=== PATIENT | female | born 1995 | race American Indian/Alaskan Native ===

== ENCOUNTER 2018-01-24 10:24 | Emergency (ER) | payer SELFPAY ==
[2018-01-24 11:05] LABS: Bilirubin,Urine NEG (Negative); Blood,Urine NEG (Negative); Color,Urine Straw (Yellow); Protein,Urine <15 mg/dL mg/dL (Negative); Urobilinogen,Urine < 2.0 mg/dL (<2.0)
[2018-01-24 11:08] LABS: HCG Qualitative,Urine Positive (Negative)
--- NOTE | 2018-01-24 11:14 | Emergency Department Report ---
Blank Doc - Documentation Documentation: Patient is a 22-year-old female presenting with 2 weeks of central abdominal crampiness. Patient states it feels cramps. Patient states she is not late for her menses is not bleeding currently. Patient also has a very mild vaginal discharge as well. Patient denies any nausea vomiting fevers chills diarrhea cough cold congestion at this time. Focused physical exam patient has some mild generalized abdominal discomfort but no rebound or guarding. Urinalysis impression Karen patient is . Patient will be sent to the treatment room for pelvic exam and ultrasound be done as well.
--- NOTE | 2018-01-24 11:37 | Emergency Department Report ---
ED Female HPI - General Chief complaint: Abdominal Pain Stated complaint: CRAMPING Time Seen by Provider: 01/24/18 11:06 Source: patient Mode of arrival: Ambulatory Limitations: No Limitations - History of Present Illness Initial comments: This is a 22-year-old -Martiniquais female presents with lower abdominal cramping, low back pain, and vaginal discharge for 3 days. Patient states she is nauseous and think she could be . Patient states she is trying to get medicaid insurance to follow up with DIAGNOSTIC IMAGING MANAGER but awaiting confirmation. Patient states nausea and vomiting for 2 weeks have been intermittent and worse after eating. Patient reports abdominal pain is a cramping sensation that is 6 out of 10 pain scale. A0, LMP 12/02/2017. Patient denies vaginal bleeding, low back pain, frequency, urgency, dysuria, fever, chest pain. MD Complaint: vaginal discharge Onset/Timin -: week(s) Location: suprapubic Radiation: non-radiating Severity: moderate Severity scale (0 -10): 6 Quality: cramping Consistency: intermittent Improves with: none Worsens with: none Are you Now?: Yes Last Menstrual Period: 12/02/17 EDC: 09/08/18 Associated Symptoms: vaginal discharge, abdominal pain, nausea/vomiting. denies : vaginal bleeding, fever/chills, headaches, loss of appetite, dysuria, hematuria, rash, seizure, shortness of breath, syncope, weakness - Related Data Sexually active: Yes : 2 Para: 1 A: 0 Home Medications Medication Instructions Recorded Confirmed Last Taken Vit No.129/Iron/Folic 05/04/16 05/04/16 [ One Daily Tablet] Previous Rx's Medication Instructions Recorded Last Taken Type Miconazole 2% [Monistat 7 Vag 1 applicator VG QHS 3 Days #1 tube 01/24/18 Unknown Rx Cream] 21/Iron Fu/Folic Acid 1 each PO DAILY #30 tablet 01/24/18 Unknown Rx [ Complete Caplet] metroNIDAZOLE [Metronidazole] 500 mg PO BID #14 tablet 01/24/18 Unknown Rx Allergies Allergy/AdvReac Type Severity Reaction Status Date / Time No Known Allergies Allergy Verified 05/12/14 17:49 ED Review of Systems ROS: Stated complaint: CRAMPING Other details as noted in HPI Constitutional: denies: chills, fever Respiratory: denies: cough, shortness of breath, wheezing Cardiovascular: denies: chest pain, palpitations Gastrointestinal: abdominal pain. denies: nausea, diarrhea Genitourinary: discharge. denies: urgency, dysuria Musculoskeletal: denies: back pain, joint swelling, arthralgia Skin: denies: rash, lesions Neurological: denies: headache, weakness, paresthesias Psychiatric: denies: anxiety, depression ED Past Medical Hx - Past Medical History Previous Medical History?: Yes Hx Hypertension: No Hx Congestive Heart Failure: No Hx Diabetes: No Hx Deep Vein Thrombosis: No Hx Renal Disease: No Hx Sickle Cell Disease: No Hx Headaches / Migraines: Yes Hx Seizures: No Hx Asthma: No Hx COPD: No Hx HIV: No - Surgical History Past Surgical History?: No - Social History Smoking Status: Never Smoker Substance Use Type: None - Medications Home Medications: Home Medications Medication Instructions Recorded Confirmed Last Taken Type Vit No.129/Iron/Folic 05/04/16 05/04/16 History [ One Daily Tablet] Miconazole 2% [Monistat 7 Vag 1 applicator VG QHS 3 Days #1 tube 01/24/18 Unknown Rx Cream] 21/Iron Fu/Folic Acid 1 each PO DAILY #30 tablet 01/24/18 Unknown Rx [ Complete Caplet] metroNIDAZOLE [Metronidazole] 500 mg PO BID #14 tablet 01/24/18 Unknown Rx ED Physical Exam - General Limitations: No Limitations General appearance: alert, in no apparent distress - Respiratory Respiratory exam: Present: normal lung sounds bilaterally. Absent: respiratory distress - Cardiovascular Cardiovascular Exam: Present: regular rate, normal rhythm. Absent: systolic murmur, diastolic murmur, rubs, gallop - GI/Abdominal GI/Abdominal exam: Present: soft, normal bowel sounds - External exam: Present: normal external exam Speculum exam: Present: vaginal discharge (malodorous white discharge). Absent : cervical discharge, vaginal bleeding, foreign body, tissue, laceration Bi-manual exam: Present: normal bi-manual exam - Back Exam Back exam: Present: full ROM. Absent: CVA tenderness (R), CVA tenderness (L) - Neurological Exam Neurological exam: Present: alert, oriented X3 - Psychiatric Psychiatric exam: Present: normal affect, normal mood - Skin Skin exam: Present: warm, dry, intact, normal color. Absent: rash ED Course Vital Signs 01/24/18 01/24/18 10:37 14:37 Temperature 98.9 F 98.0 F Pulse Rate 64 78 Respiratory 16 17 Rate Blood Pressure 112/62 Blood Pressure 106/52 [Left] O2 Sat by Pulse 100 100 Oximetry ED Medical Decision Making - Radiology Data Radiology results: report reviewed, image reviewed ULTRASOUND OB LESS THAN 14 WEEKS FETUS ULTRASOUND OB TRANSVAGINAL HISTORY: Abdominal pain during . COMPARISON: No recent comparison. TECHNIQUE: Transabdominal and transvaginal ultrasound with color doppler interrogation. FINDINGS: Uterus: The uterus measures 9.0 x 5.7 x 6.8 cm. No evidence for uterine mass. Normal cervix. Endometrium: An intrauterine gestational sac containing a small pole and yolk sac is identified. Heart rate measures 113 beats per minute. Estimated age on ultrasound is 6 weeks, 6 days. No subchorionic hemorrhage is visualized. Right ovary: 3.0 x 2.6 x 3.6 cm. A 2.4 cm complex area is identified in the right ovary which probably represents a corpus luteum cyst. Left ovary: 2.7 x 1.3 x 2.9 cm. No abnormality. No pelvic fluid or mass is identified. Normal color doppler interrogation. IMPRESSION: Viable, single intrauterine as described. No acute abnormality is detected. Probable corpus luteum cyst in the right ovary. - Medical Decision Making This is a 22-year-old -Martiniquais female who presents with vaginal discharge and abdominal pain during . Patient was examined by myself and Dr. Coles. Labs obtained and OB US. Vitals are stable and in no acute distress. Wet prep positive for yeast and clue cells, negative trichomoniasis. Viable, single intrauterine as described. No acute abnormality is detected. Probable corpus luteum cyst in the right ovary.Patient informed of reuslts. Started on flagyl, miconazole, and vitamins. Discharged home in stable condition. F/U with DIAGNOSTIC IMAGING MANAGER. Critical care attestation.: If time is entered above; I have spent that time in minutes in the direct care of this critically ill patient, excluding procedure time. ED Disposition Clinical Impression: confirmed by positive blood test, Bacterial vaginitis, Vaginal candidiasis Vaginal discharge during Qualifiers: Trimester: first trimester Qualified Code(s): O26.891 - Other specified related conditions, first trimester Disposition: DC-01 TO HOME OR SELFCARE Is pt being admited?: No Does the pt Need Aspirin: No Condition: Stable Instructions: (ED), Bacterial Vaginosis (ED), Vulvovaginal Candidiasis (ED) Additional Instructions: Start vitamins daily. Complete full course of antibiotics as prescribed. Follow up with DIAGNOSTIC IMAGING MANAGER. Prescriptions: Miconazole 2% [Monistat 7 Vag Cream] 1 applicator VG QHS 3 Days #1 tube metroNIDAZOLE [Metronidazole] 500 mg PO BID #14 tablet 21/Iron Fu/Folic Acid [ Complete Caplet] 1 each PO DAILY #30 tablet Referrals: [facility] [Provider Group] - 3-5 Days [facility] [Provider Group] - 3-5 Days [facility]Outside[facility] - 3-5 Days Forms: STI Treatment and Prevention Time of Disposition: 14:49 Print Language: ZIMBABWEAN
--- NOTE | 2018-01-24 14:26 | Ultrasound Report ---
ULTRASOUND OB LESS THAN 14 WEEKS FETUS ULTRASOUND OB TRANSVAGINAL HISTORY: Abdominal pain during . COMPARISON: No recent comparison. TECHNIQUE: Transabdominal and transvaginal ultrasound with color doppler interrogation. FINDINGS: Uterus: The uterus measures 9.0 x 5.7 x 6.8 cm. No evidence for uterine mass. Normal cervix. Endometrium: An intrauterine gestational sac containing a small pole and yolk sac is identified. Heart rate measures 113 beats per minute. Estimated age on ultrasound is 6 weeks, 6 days. No subchorionic hemorrhage is visualized. Right ovary: 3.0 x 2.6 x 3.6 cm. A 2.4 cm complex area is identified in the right ovary which probably represents a corpus luteum cyst. Left ovary: 2.7 x 1.3 x 2.9 cm. No abnormality. No pelvic fluid or mass is identified. Normal color doppler interrogation. IMPRESSION: Viable, single intrauterine as described. No acute abnormality is detected. Probable corpus luteum cyst in the right ovary.
[2018-01-24 14:37] VITALS: BP 106/52
== END 2018-01-24 15:05 | disposition home or self-care (01) ==
LOC: ED 10:24
DX: O23.591 Infection of other part of genital tract in pregnancy, first trimester (principal); N76.0 Acute vaginitis; O98.811 Other maternal infectious and parasitic diseases complicating pregnancy, first trimester; B37.3 Candidiasis of vulva and vagina; B96.89 Other specified bacterial agents as the cause of diseases classified elsewhere; Z3A.01 Less than 8 weeks gestation of pregnancy; G43.909 Migraine, unspecified, not intractable, without status migrainosus; Z79.899 Other long term (current) drug therapy
CPT/HCPCS: 36415; 76801; 76817; 81001; 81025; 84702; 87210; 87591

== ENCOUNTER 2018-02-25 16:31 | Emergency (ER) | payer OTHER ==
[2018-02-25 16:56] VITALS: BP 129/78
[2018-02-25 17:58] LABS: Bacteria,Urine 1+ /HPF (Negative); Bilirubin,Urine NEG (Negative); Blood,Urine NEG (Negative); Color,Urine Straw (Yellow); Mucus,Urine FEW /HPF; Protein,Urine <15 mg/dL mg/dL (Negative); Urobilinogen,Urine < 2.0 mg/dL (<2.0); WBC,Urine < 1.0 /HPF (0.0-6.0)
--- NOTE | 2018-02-25 19:04 | Emergency Department Report ---
<BEST DUFFY - Last Filed: 02/25/18 19:00> ED General Adult HPI - General Chief complaint: Urogenital-Female Stated complaint: POSS MISCARRIAGE Time Seen by Provider: 02/25/18 18:27 Source: patient Mode of arrival: Ambulatory Limitations: No Limitations - History of Present Illness Initial comments: Patient presents to the emergency department with a chief complaint of issues. The patient states that she is approximately 4 weeks' and was seen at [facility] or Sunday and was initially told that she was having a miscarriage. Patient states at that time of presentation she was having some abdominal cramping and passing of bright red blood. Patient states initially the first nurse practitioner told her she was having a miscarriage and given discharge assessment nurse practitioner told her she was having a threatened miscarriage. Patient states she is normal to have abdominal pain or any vaginal bleeding but is confused about status for and is here for a second opinion -: Gradual Severity scale (0 -10): 0 Improves with: none Worsens with: none Associated Symptoms: denies other symptoms Treatments Prior to Arrival: none - Related Data Home Medications Medication Instructions Recorded Confirmed Last Taken Vit No.129/Iron/Folic 05/04/16 05/04/16 [ One Daily Tablet] Previous Rx's Medication Instructions Recorded Last Taken Type Miconazole 2% [Monistat 7 Vag 1 applicator VG QHS 3 Days #1 tube 01/24/18 Unknown Rx Cream] 21/Iron Fu/Folic Acid 1 each PO DAILY #30 tablet 01/24/18 Unknown Rx [ Complete Caplet] metroNIDAZOLE [Metronidazole] 500 mg PO BID #14 tablet 01/24/18 Unknown Rx Allergies Allergy/AdvReac Type Severity Reaction Status Date / Time No Known Allergies Allergy Verified 05/12/14 17:49 ED Review of Systems ROS: Stated complaint: POSS MISCARRIAGE Other details as noted in HPI Comment: All other systems reviewed and negative Constitutional: denies: chills, fever Eyes: denies: eye pain, eye discharge, vision change ENT: denies: ear pain, throat pain Respiratory: denies: cough, shortness of breath, wheezing Cardiovascular: denies: chest pain, palpitations Endocrine: no symptoms reported Gastrointestinal: denies: abdominal pain, nausea, diarrhea Genitourinary: denies: urgency, dysuria, discharge Musculoskeletal: denies: back pain, joint swelling, arthralgia Skin: denies: rash, lesions Neurological: denies: headache, weakness, paresthesias Psychiatric: denies: anxiety, depression Hematological/Lymphatic: denies: easy bleeding, easy bruising ED Past Medical Hx - Past Medical History Hx Hypertension: No Hx Congestive Heart Failure: No Hx Diabetes: No Hx Deep Vein Thrombosis: No Hx Renal Disease: No Hx Sickle Cell Disease: No Hx Headaches / Migraines: Yes Hx Seizures: No Hx Asthma: No Hx COPD: No Hx HIV: No - Social History Smoking Status: Never Smoker Substance Use Type: None - Medications Home Medications: Home Medications Medication Instructions Recorded Confirmed Last Taken Type Vit No.129/Iron/Folic 05/04/16 05/04/16 History [ One Daily Tablet] Miconazole 2% [Monistat 7 Vag 1 applicator VG QHS 3 Days #1 tube 01/24/18 Unknown Rx Cream] 21/Iron Fu/Folic Acid 1 each PO DAILY #30 tablet 01/24/18 Unknown Rx [ Complete Caplet] metroNIDAZOLE [Metronidazole] 500 mg PO BID #14 tablet 01/24/18 Unknown Rx ED Physical Exam - General Limitations: No Limitations General appearance: alert, in no apparent distress - Head Head exam: Present: atraumatic, normocephalic - Eye Eye exam: Present: normal appearance - ENT ENT exam: Present: mucous membranes moist - Neck Neck exam: Present: normal inspection - Respiratory Respiratory exam: Present: normal lung sounds bilaterally. Absent: respiratory distress, wheezes, rales, rhonchi - Cardiovascular Cardiovascular Exam: Present: regular rate, normal rhythm. Absent: systolic murmur, diastolic murmur, rubs, gallop - GI/Abdominal GI/Abdominal exam: Present: soft, normal bowel sounds. Absent: distended, tenderness - External exam: Present: other (exam deferred by patient) Speculum exam: Present: other (exam deferred by patient) Bi-manual exam: Present: other (exam deferred by patient) - Extremities Exam Extremities exam: Present: normal inspection - Back Exam Back exam: Present: normal inspection - Neurological Exam Neurological exam: Present: alert, oriented X3, CN II-XII intact. Absent: motor sensory deficit - Psychiatric Psychiatric exam: Present: normal affect, normal mood - Skin Skin exam: Present: warm, dry, intact, normal color. Absent: rash ED Course Vital Signs 02/25/18 16:53 Temperature 98.7 F Pulse Rate 93 H Respiratory 18 Rate Blood Pressure 129/78 O2 Sat by Pulse 100 Oximetry Critical care attestation.: If time is entered above; I have spent that time in minutes in the direct care of this critically ill patient, excluding procedure time. ED Disposition Clinical Impression: Threatened miscarriage Disposition: DC-01 TO HOME OR SELFCARE Condition: Stable Instructions: Threatened Miscarriage (ED) Additional Instructions: Follow-up with a handling tech doctor in 3-5 days or if symptoms worsen and continue return to emergency room as soon as possible. Referrals: [facility] [Primary Care Provider] - 3-5 Days ANTELMO RIVERA MD [Staff Physician] - 3-5 Days [facility] [Provider Group] - 3-5 Days Forms: Work/School Release Form(ED) <FRANCISCA MCCARTHY - Last Filed: 02/25/18 22:52> ED Medical Decision Making - Lab Data Result diagrams: 02/25/18 20:10 - Medical Decision Making This is a 22-year-old female presents with threatened miscarriage. Patient was signed out to me by Dr. Duffy for pending US report. Patient is stable and was examined by me. Normal abdominal exam. US OB obtained and dictated by the radiologist. As per patient, patient should be about 12 weeks . Patient does follow [facility]. Ua obtained. Quantative serum test obtained. Patient notified of the US report with no questions noted by the patient. RH factor positive. Labs within normal limits. Patient was referred to Follow-up with a [facility] in 3-5 days or if symptoms worsen and continue return to emergency room as soon as possible. At time of discharge, the patient does not seem toxic or ill in appearance. No acute signs of distress noted. Patient agrees to discharge treatment plan of care. No further questions noted by the patient. ED Disposition Is pt being admited?: No Does the pt Need Aspirin: No
[2018-02-25 20:22] LABS: Basophils # (Auto) 0.1 K/mm3 (0.0-0.1); Basophils % (Auto) 0.8 % (0.0-1.8); Eosinophils # (Auto) 0.1 K/mm3 (0.0-0.4); Eosinophils % (Auto) 1.8 % (0.0-4.3); Hematocrit 37.7 % (30.3-42.9); Hemoglobin 12.5 gm/dl (10.1-14.3); Lymphocytes # (Auto) 1.7 K/mm3 (1.2-5.4); Lymphocytes % (Auto) 22.4 % (13.4-35.0); Mean Corpuscular HGB Conc 33 % (30-34); Mean Corpuscular Hemoglobin 31 pg (28-32); Mean Corpuscular Volume 94 fl (79-97); Monocytes # (Auto) 0.6 K/mm3 (0.0-0.8); Monocytes % (Auto) 8.3 % (0.0-7.3); Platelet Count 317 K/mm3 (140-440); Red Blood Count 4.02 M/mm3 (3.65-5.03); Red Cell Distribution Width 14.4 % (13.2-15.2)
--- NOTE | 2018-02-25 22:32 | Ultrasound Report ---
FINAL REPORT PROCEDURE: US OB TRANSVAGINAL TECHNIQUE: Real-time transvaginal sonography of the uterus, placenta, amniotic fluid, adnexa, and fetus was performed with image documentation. Measurements were obtained to determine age/size. M-mode Doppler was used to document heartbeat. CPT 53263 HISTORY: pain and bleeding with COMPARISON: No prior studies are available for comparison. FINDINGS: CRL: 7mm, which corresponds to a gestational age of: 6weeks, 4 days. Embryonic Cardiac Activity: Not visualized Gestational Sac: Large in size measuring 45.3 millimeters corresponding to 10 weeks and 0 days of gestational age Right Ovary: 2.9 x 2.0 x 2.4 centimeters. A small complex cystic lesion is noted measuring 1.2 x 1.1 centimeters. This is of nonspecific nature. Left Ovary: 2.7 x 1.4 x 1.9 centimeters with normal echotexture IMPRESSION: A single intrauterine gestational sac is noted with a CR L measurement corresponding to 6 weeks and 4 days of gestational age. However there is no cardiac activity. Findings are consistent with early intrauterine gestation failure.
--- NOTE | 2018-02-25 22:32 | Ultrasound Report ---
FINAL REPORT PROCEDURE: US OB < = 14 WEEKS FETUS TECHNIQUE: Real-time transabdominal sonography of the uterus, placenta, amniotic fluid, adnexa, and fetus was performed with image documentation. Measurements were obtained to determine age/size. M-mode Doppler was used to document heartbeat. CPT 93020 HISTORY: pain and bleeding with COMPARISON: No prior studies are available for comparison. FINDINGS: CRL: 7mm, which corresponds to a gestational age of: 6weeks, 4 days. Embryonic Cardiac Activity: Not visualized Gestational Sac: Large in size measuring 45.3 millimeters corresponding to 10 weeks and 0 days of gestational age Right Ovary: 2.9 x 2.0 x 2.4 centimeters. A small complex cystic lesion is noted measuring 1.2 x 1.1 centimeters. This is of nonspecific nature. Left Ovary: 2.7 x 1.4 x 1.9 centimeters with normal echotexture IMPRESSION: A single intrauterine gestational sac is noted with a CR L measurement corresponding to 6 weeks and 4 days of gestational age. However there is no cardiac activity. Findings are consistent with early intrauterine gestation failure.
== END 2018-02-25 22:57 | disposition home or self-care (01) ==
LOC: ED 16:31
DX: O20.0 Threatened abortion (principal); Z3A.01 Less than 8 weeks gestation of pregnancy
CPT/HCPCS: 36415; 76801; 76817; 81001; 84702; 85025; 86850; 86900; 86901; 99284

== ENCOUNTER 2018-03-01 05:45 | Day surgery (SDC) | payer OTHER ==
--- NOTE | 2018-02-28 16:20 | Short Stay Summary ---
Short Stay Documentation Date of service: 03/01/18 Narrative H&P: 22y/o @ 6+5 weeks with findings of an embryonic demise. The patient is approximately 10 weeks ega by her lmp. Ultrasound demonstrates a single intrauterine without cardiac activity. The patient has had spotting without passage of tissue. Patient has been reassessed/reevaluated/re-examined. H&P has been reviewed. No interval changes. - History Principal diagnosis: Missed Past Medical History: No medical history Past Surgical History: No surgical history Social history: single - Allergies and Medications Current Medications: Allergies No Known Allergies Allergy (Verified 05/12/14 17:49) Home Medications Medication Instructions Recorded Confirmed Last Taken Type Vit No.129/Iron/Folic 05/04/16 05/04/16 History [ One Daily Tablet] Miconazole 2% [Monistat 7 Vag 1 applicator VG QHS 3 Days #1 tube 01/24/18 Unknown Rx Cream] 21/Iron Fu/Folic Acid 1 each PO DAILY #30 tablet 01/24/18 Unknown Rx [ Complete Caplet] metroNIDAZOLE [Metronidazole] 500 mg PO BID #14 tablet 01/24/18 Unknown Rx - Physical exam General appearance: no acute distress Integumentary: no rash HEENT: Atraumatic Lungs: Clear to auscultation Breasts: deferred Heart: Regular rate Gastrointestinal: normal Female Genitourinary: deferred Rectal Exam: deferred Extremities: no ischemia - Brief post op/procedure progress note Date of procedure: 03/01/18 Pre-op diagnosis: missed Post-op diagnosis: same Procedure: Suction dilatation and curettage Anesthesia: GETA Surgeon: LARS DOUGLASS Estimated blood loss: other (300 mL) Pathology: list (products of conception) Specimen disposition: to lab Condition: stable - Hospital course Hospital course: The patient was admitted the day of surgery and underwent a suction dilatation and curettage for an embryonic demise. Please see operative note for details of surgery. Postoperative course was uneventful. - Disposition Condition at discharge: Good Disposition: DC-01 TO HOME OR SELFCARE Short Stay Discharge Plan Activity: other (pelvic rest for 2 weeks) Diet: regular Additional Instructions: Scheduled follow-up with Dr. Douglass and 2-4 weeks Prescriptions: Ibuprofen [Motrin] 800 mg PO Q8HR PRN #60 tablet PRN Reason: Pain, Mild (1-3) oxyCODONE /ACETAMINOPHEN [Percocet 5/325] 1 tab PO Q6HR PRN #30 tablet PRN Reason: Pain
[2018-03-01] MEDS ORDERED: NACL BACTERIOSTATIC INFILTRATI ONE (06:50)
[2018-03-01] MEDS ORDERED: LACTATED RINGERS 1,000 ML IV SCH (06:55)
--- NOTE | 2018-03-01 06:56 | Anesthesia Day of Surgery ---
Anesthesia Day of Surgery - Day of Surgery Patient Examined: Yes Patient H&P Reviewed: Yes Patient is NPO: Yes
--- NOTE | 2018-03-01 06:57 | Anesthesia Consultation ---
Anesthesia Consult and Med Hx Date of service: 03/01/18 - Airway Anesthetic Teeth Evaluation: Good ROM Head & Neck: Adequate Mental/Hyoid Distance: Adequate Mallampati Class: Class I Intubation Access Assessment: Good - Pulmonary Exam CTA: Yes - Cardiac Exam Cardiac Exam: RRR - Pre-Operative Health Status ASA Pre-Surgery Classification: ASA2 Proposed Anesthetic Plan: General (11wks missed AB) - Pulmonary Hx Asthma: No COPD: No Hx Pneumonia: No - Cardiovascular System Hx Hypertension: No - Central Nervous System Hx Seizures: No Hx Psychiatric Problems: Yes - Endocrine Hx Renal Disease: No Hx End Stage Renal Disease: No Hx Hypothyroidism: No Hx Hyperthyroidism: No - Hematic Hx Anemia: No Hx Sickle Cell Disease: No - Other Systems Hx Alcohol Use: No Hx Cancer: No
[2018-03-01] MEDS ORDERED: VERSED IV NR (07:00)
[2018-03-01] MEDS ORDERED: DILAUDID ONE (07:16)
[2018-03-01] MEDS ORDERED: DECADRON ONE (07:16)
[2018-03-01] MEDS ORDERED: XYLOCAINE MPF 2% ONE (07:16)
[2018-03-01] MEDS ORDERED: ZOFRAN ONE (07:16)
[2018-03-01] MEDS ORDERED: DIPRIVAN 10 MG/ML IV ONE (07:17)
[2018-03-01] MEDS ORDERED: NACL 0.9% IR ONE (07:55)
[2018-03-01] MEDS ORDERED: SILVER NITRATE TP ONE (07:59)
[2018-03-01] MEDS ORDERED: METHERGINE IM ONE ×2 (07:59→08:00)
--- NOTE | 2018-03-01 08:06 | Operative Report ---
Operative Report Operative Report: Date of surgery: 03/01/2018 Preoperative diagnosis: Missed Postoperative diagnosis: Same as above Procedure: Suction dilatation and curettage Surgeon: Althea Robin M.D. Anesthesia: Gen. endotracheal anesthesia Estimated blood loss: 300 mL Findings: Products of conception Indication: 22-year-old 001 at 6+5 weeks who presents with findings of an embryonic demise. The patient was approximately 10-11 weeks estimated gestational age by her last menstrual period. The patient elected to undergo surgical management. Procedure: The patient was taken to the operating room and given general endotracheal anesthesia without complication. The patient is prepped and draped in a normal sterile fashion. A bivalve speculum was placed in the patient's vagina and a single-tooth tenaculums placed on the anterior lip of the cervix. The uterine cavity was then sounded. The cervical os was then dilated with graduated dilators. A number 8 Tongan curved cannula was placed to suction and found to be adequate. The cannula was then gently inserted into the dilated cervical os. Evacuation of the uterine contents were performed. Sharp curettage and endometrial surface was performed until cry was achieved. The cannula was then gently reinserted into the uterine cavity to evacuate any additional contents. After removal of the cannula there was no evidence of any active bleeding. The vaginal instruments were then removed atraumatically. The patient was then successfully extubated and taken to the recovery room in stable condition. All sponge laps and needle counts were correct 2. Pathology consisted of products of conception.
[2018-03-01] MEDS ORDERED: TORADOL ONE (08:13)
[2018-03-01] MEDS ORDERED: PERCOCET 5/325 PO PRN (08:43)
[2018-03-01] MEDS ORDERED: PERCOCET 5/325 PO NR (08:45)
--- NOTE | 2018-03-01 08:46 | Post Anesthesia Evaluation ---
- Post Anesthesia Evaluation Patient Participated: Yes Airway Patent: Yes Stable Respiratory Function: Yes Nausea/Vomiting: No Temp > 96.8F: Yes Pain Manageable: Yes Adequeate Hydration: Yes Anesthesia Complications: No
[2018-03-01 09:33] VITALS: BP 125/82
== END 2018-03-01 10:00 | disposition home or self-care (01) ==
LOC: OR 05:45
PROVIDERS: ATTEND Obstetrics & Gynecology
DX: O02.1 Missed abortion (principal); G43.909 Migraine, unspecified, not intractable, without status migrainosus; F32.9 Major depressive disorder, single episode, unspecified; Z79.899 Other long term (current) drug therapy; Z80.9 Family history of malignant neoplasm, unspecified
CPT/HCPCS: 59820; 86900; 86901; 88305; J1100; J1170; J1885; J2210; J2250; J2405; J2704

== ENCOUNTER 2019-06-05 12:12 | Emergency (ER) | payer OTHER, MEDICAID ==
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
[2019-06-05] MEDS ORDERED: IBUPROFEN 800 MG TAB PO ONE (16:58)
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
[2019-06-05 18:27] LABS: HCG Qualitative,Urine Negative (Negative)
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
[2019-06-05 23:44] VITALS: BP 124/77
== END 2019-06-05 21:22 | disposition home or self-care (01) ==
LOC: ED 12:12
DX: S16.1XXA Strain of muscle, fascia and tendon at neck level, initial encounter (principal); R51 Headache; R11.0 Nausea; G43.909 Migraine, unspecified, not intractable, without status migrainosus; Z79.899 Other long term (current) drug therapy; V89.2XXA Person injured in unspecified motor-vehicle accident, traffic, initial encounter; Y93.89 Activity, other specified; Y92.410 Unspecified street and highway as the place of occurrence of the external cause; Y99.8 Other external cause status
CPT/HCPCS: 70450; 72125; 81025